=== PATIENT | female | born 1975 | race Caucasian/White ===

== ENCOUNTER 2020-09-09 14:52 | Emergency (ER) | payer OTHER ==
[~2020-09-09] VITALS: Ht 175.2 cm; Wt 125.0 kg
[2020-09-09 16:00] LABS: BASOPHILS # (AUTO) 0.1 10^3/uL (0.0-0.1); BASOPHILS % (AUTO) 1 % (0-10); EOSINOPHILS # (AUTO) 0.1 10^3/uL (0.0-0.3); EOSINOPHILS % (AUTO) 1 % (0-10); HEMATOCRIT 40 % (35-52); HEMOGLOBIN 12.2 g/dL (11.5-16.0); LYMPHOCYTES # (AUTO) 2.2 10^3/uL (1.0-4.0); LYMPHOCYTES % (AUTO) 15 % (12-44); MEAN CORPUSCULAR HEMOGLOBIN 26 pg (25-34); MEAN CORPUSCULAR HGB CONC 30 g/dL (32-36); MEAN CORPUSCULAR VOLUME 86 fL (80-99); MEAN PLATELET VOLUME 8.6 fL (9.0-12.2); MONOCYTES # (AUTO) 0.9 10^3/uL (0.0-1.0); MONOCYTES % (AUTO) 6 % (0-12); NEUTROPHILS # (AUTO) 11.4 10^3/uL (1.8-7.8); NEUTROPHILS % (AUTO) 75 % (42-75); PLATELET COUNT 583 10^3/uL (130-400); WHITE BLOOD COUNT 15.2 10^3/uL (4.3-11.0)
--- NOTE | 2020-09-09 16:09 | ED Respiratory ---
General Chief Complaint: General Problems/Pain Stated Complaint: COVID SYMPTOMS Nursing Triage Note: Pt ambulatory to ER after being seen at [facility] for SOA with Exertion, Fatigue x2 weeks. Pt was diagnosed Covid+ on 08/27/20. Pt states that she was called sunday and told she no longer needed to quarentine. Pt states that she is still having these symptoms. Pt denies vaccination. Source: patient Exam Limitations: no limitations History of Present Illness Date Seen by Provider: Sep 09, 2020 Time Seen by Provider: 15:20 Initial Comments Patient to the ER by private conveyance from home with chief complaint that she was diagnosed on 27 August with COVID-19. 3 days later she felt very short of br eath so she went to [facility] and they put her on regen monoclonal antibodies and sent her home. She says she felt much better afterwards and has not had any fever since the . She still feels very tired and short of air especially with exertion [place] appointment with Dr. Jonas at [facility]. She typically sees [facility]. He told her that her oxygen sat went down to 83% when she walked around so she needed to come out to the ER to be ruled out for a pulmonary embolism. Patient does not have a history of lung disease she does not smoke and she does not use oxygen at baseline. Nursing reports that after ambulating all the way from the parking lot into the ER and in 2 days she was put on pulse oximeter and had an oxygen saturation of 100% with nonlabored breathing. Allergies and Home Medications Allergies Coded Allergies: No Known Drug Allergies (Unverified , 09/09/20) Patient Home Medication List Home Medication List Reviewed: Yes Review of Systems Review of Systems Constitutional: No chills, No fever; malaise, weakness EENTM: No hearing loss, No ear pain, No eye pain Respiratory: No cough, No phlegm; short of breath Cardiovascular: No chest pain, No edema, No palpitations Gastrointestinal: No abdominal pain, No constipation, No diarrhea, No nausea Musculoskeletal: No back pain, No joint pain All Other Systems Reviewed Negative Unless Noted: Yes Past Vvolgbg-[id number]-[id number] Hx Patient Social History Tobacco Use?: No Use of E-Cig and/or Vaping dev: No Substance use?: No Alcohol Use?: No Pt feels they are or have been: No Immunizations Up To Date Influenza Vaccine Up-to-Date: No; Not Current Physical Exam Vital Signs - First Documented 09/09/20 15:15 Temp 37.6 Pulse 110 Resp 24 B/P (MAP) 131/90 (104) Pulse Ox 98 O2 Delivery Room Air Capillary Refill : Less Than 3 Seconds Height: '" Weight: lbs. oz. kg; 40.00 BMI Method: General Appearance: no apparent distress, obese Eyes: Bilateral Eye Normal Inspection, Bilateral Eye PERRL, Bilateral Eye EOMI HEENT: PERRL/EOMI, pharynx normal (Oral mucosa is only mildly dry) Neck: non-tender, normal inspection Respiratory: lungs clear, normal breath sounds, no respiratory distress (Oxygen saturation 100% with nonlabored breathing on room air and a good pulsatile waveform.), no accessory muscle use Cardiovascular: normal peripheral pulses, regular rate, rhythm, no edema Gastrointestinal: normal bowel sounds, non tender, soft Extremities: non-tender, normal inspection Neurologic/Psychiatric: no motor/sensory deficits, alert, normal mood/affect, oriented x 3 Skin: normal color, warm/dry Progress/Results/Core Measures Suspected Sepsis SIRS Temperature: Pulse: 110 Respiratory Rate: 24 Laboratory Tests 09/09/20 15:46: White Blood Count 15.2H Blood Pressure 131 /90 Mean: 104 Laboratory Tests 09/09/20 15:46: Creatinine 0.76, Platelet Count 583H, Total Bilirubin 0.2 Results/Orders Lab Results Laboratory Tests Test 09/09/20 15:46 09/09/20 15:52 Range/Units White Blood Count 15.2 H 4.3-11.0 10^3/uL Red Blood Count 4.68 3.80-5.11 10^6/uL Hemoglobin 12.2 11.5-16.0 g/dL Hematocrit 40 35-52 % Mean Corpuscular Volume 86 80-99 fL Mean Corpuscular Hemoglobin 26 25-34 pg Mean Corpuscular Hemoglobin Concent 30 L 32-36 g/dL Red Cell Distribution Width 15.2 H 10.0-14.5 % Platelet Count 583 H 130-400 10^3/uL Mean Platelet Volume 8.6 L 9.0-12.2 fL Immature Granulocyte % (Auto) 4 % Neutrophils (%) (Auto) 75 42-75 % Lymphocytes (%) (Auto) 15 12-44 % Monocytes (%) (Auto) 6 0-12 % Eosinophils (%) (Auto) 1 0-10 % Basophils (%) (Auto) 1 0-10 % Neutrophils # (Auto) 11.4 H 1.8-7.8 10^3/uL Lymphocytes # (Auto) 2.2 1.0-4.0 10^3/uL Monocytes # (Auto) 0.9 0.0-1.0 10^3/uL Eosinophils # (Auto) 0.1 0.0-0.3 10^3/uL Basophils # (Auto) 0.1 0.0-0.1 10^3/uL Immature Granulocyte # (Auto) 0.5 H 0.0-0.1 10^3/uL Neutrophils % (Manual) 71 % Lymphocytes % (Manual) 22 % Monocytes % (Manual) 7 % Blood Morphology Comment NORMAL D-Dimer > 20.00 H 0.00-0.49 UG/ML Sodium Level 142 135-145 MMOL/L Potassium Level 4.6 3.6-5.0 MMOL/L Chloride Level 105 98-107 MMOL/L Carbon Dioxide Level 25 21-32 MMOL/L Anion Gap 12 5-14 MMOL/L Blood Urea Nitrogen 11 7-18 MG/DL Creatinine 0.76 0.60-1.30 MG/DL Estimat Glomerular Filtration Rate 83 BUN/Creatinine Ratio 14 Glucose Level 97 70-105 MG/DL Calcium Level 9.1 8.5-10.1 MG/DL Corrected Calcium 9.3 8.5-10.1 MG/DL Total Bilirubin 0.2 0.1-1.0 MG/DL Aspartate Amino Transf (AST/SGOT) 35 H 5-34 U/L Alanine Aminotransferase (ALT/SGPT) 42 0-55 U/L Alkaline Phosphatase 59 40-136 U/L C-Reactive Protein High Sensitivity 0.47 0.00-0.50 MG/DL Total Protein 7.3 6.4-8.2 GM/DL Albumin 3.8 3.2-4.5 GM/DL Blood Gas Puncture Site RIGHT RADIAL Blood Gas Patient Temperature 99.6 Arterial Blood pH 7.40 7.37-7.43 Arterial Blood Partial Pressure CO2 37 35-45 MMHG Arterial Blood Partial Pressure O2 95 H 79-93 MMHG Arterial Blood HCO3 22 L 23-27 MMOL/L Arterial Blood Total CO2 23.4 21.0-31.0 MMOL/L Arterial Blood Oxygen Saturation 97 94-100 % Arterial Blood Base Excess -1.8 -2.5-2.5 MMOL/L Kermit Test POSITIVE Blood Gas Ventilator Setting NO Blood Gas Inspired Oxygen N/A My Orders Orders - ABRAHAM JIMENEZ Ed Iv/Invasive Line Start (09/09/20 16:03) Ns Iv 1000 Ml (Sodium Chloride 0.9%) (09/09/20 16:15) Arterial Blood Gas (09/09/20 16:09) Ct Angio Chest W (09/09/20 17:19) Iohexol Injection (Omnipaque 350 Mg/Ml 1 (09/09/20 18:00) Received Contrast (Hold Metformin- Contr (09/09/20 18:00) Sodium Chloride Flush (Catheter Flush Sy (09/09/20 18:00) Ns (Ivpb) (Sodium Chloride 0.9% Ivpb Bag (09/09/20 18:00) Medications Given in ED Current Medications Medications Dose Ordered Sig/Brooks Route Start Time Stop Time Status Last Admin Dose Admin Iohexol 100 ml ONCE ONCE IV 09/09/20 18:00 09/09/20 18:01 DC 09/09/20 18:15 87 ML Sodium Chloride 10 ml NEEDED PRN IV 09/09/20 18:00 09/09/20 18:15 10 ML Sodium Chloride 100 ml ONCE ONCE IV 09/09/20 18:00 09/09/20 18:01 DC 09/09/20 18:15 80 ML Vital Signs/I&O 09/09/20 15:15 Temp 37.6 Pulse 110 Resp 24 B/P (MAP) 131/90 (104) Pulse Ox 98 O2 Delivery Room Air Capillary Refill : Less Than 3 Seconds Blood Pressure Mean: 104 Progress Note : Time: 16:07 Progress Note We did explain to the patient that she has all symptoms of a post Covid syndrome and gave counseling as to what to expect. Patient is still very concerned about her recommendation she might have a pulmonary embolism so a D-dimer and some labs as well as a chest x-ray were ordered. If the D-dimer is unable to rule out a pulmonary embolism then we will get a CT angiogram. We will give her a liter of fluids in anticipation of an angiogram as well as for her mild dehydration. She has no overt evidence of respiratory failure at this time. ABG was obtained. She does have a mild tachycardia of 109. Her white count is marginal and without a left shift. Diagnostic Imaging Diagonstic Imaging: Xray Plain Films/CT/US/NM/MRI: chest Comments [facility], [place] NAME: [facility] REC#: [id number] PT STATUS: REG ER : 1975 PHYSICIAN: SHABNAM DICKSON APRN ADMIT DATE: 09/09/20/ER Draft Date of Exam:09/09/20 CHEST 1 VIEW, AP/PA ONLY INDICATION: COVID infection with dyspnea and fatigue. Single AP view of chest is obtained. COMPARISON: No previous study is available for comparison at this time. FINDINGS: Heart size and pulmonary vasculature are within normal limits, and the lungs are clear, bilaterally. IMPRESSION: Unremarkable chest. Dictated on workstation # [id number] Dict: 09/09/20 1625 Trans: 09/09/20 1626 [id number] Interpreted by: AIRAM RAIN MD Electronically signed by: Reviewed: Reviewed by Me Diagonstic Imaging: CT Plain Films/CT/US/NM/MRI: chest Comments [facility] [place] [facility] REC[facility] [id number] PT STATUS: REG ER : 1975 PHYSICIAN: ABRAHAM JIMENEZ MD ADMIT DATE: 09/09/20/ER Signed Date of Exam:09/09/20 CT ANGIO CHEST W PROCEDURE: CT angiography of the chest with contrast. TECHNIQUE: Multiple contiguous axial images were obtained through the chest after uneventful bolus administration of intravenous contrast. 3D reconstructed CTA MIP acquisitions were also performed. Auto Exposure Controls were utilized during the CT exam to meet ALARA standards for radiation dose reduction. INDICATION: Hypoxemia. Shortness of breath. COVID positive. COMPARISON: Chest radiograph performed earlier the same day. FINDINGS: This helical CT pulmonary angiogram is diagnostic to the subsegmental level branches of the pulmonary artery and demonstrates no pulmonary emboli. The heart and great vessels are unremarkable. There is no pericardial effusion. There is no axillary, mediastinal or hilar adenopathy. Nodular opacities are seen throughout the lungs. No focal consolidation. No central endobronchial obstructing lesion. No pleural effusion or pneumothorax. Osseous structures appear normal. Limited views of the upper abdomen are unremarkable. IMPRESSION: 1. No acute pulmonary embolus. 2. Scattered nodular opacities throughout all five lobes. Findings can represent COVID infection. However, malignancy can also have this appearance and follow-up is recommended to ensure resolution. Dictated by: Dictated on workstation # [id number] Dict: 09/09/201816 Trans: 09/09/201830 PJE [id number] Interpreted by: ANA ROSA BILL DO Electronically signed by: ANA ROSA BILL DO 09/09/201830 Reviewed: Reviewed by Me Departure Impression Primary Impression: Post-acute COVID-19 syndrome Disposition: 01 HOME, SELF-CARE Condition: Stable Departure-Patient Inst. Decision time for Depature: 18:37 Patient Instructions: Recovery After COVID-19 Add. Discharge Instructions: It is not unusual to have shortness of breath weakness and malaise for weeks or even sometimes months after an acute Covid episode. Please review the handout for further instructions on what to expect. Follow-up with your primary care doctor for any other specific concerns. Return to the ER if you have persistent oxygen saturations below 90% while at rest, chest pain or other worrisome symptoms. All discharge instructions reviewed with patient and/or family. Voiced understanding. ABRAHAM JIMENEZ Sep 09, 2020 16:09
[2020-09-09 16:10] LABS: ALBUMIN 3.8 GM/DL (3.2-4.5); POTASSIUM 4.6 MMOL/L (3.6-5.0)
[2020-09-09 16:11] LABS: ABG BASE EXCESS -1.8 MMOL/L (-2.5-2.5); ABG OXYGEN SATURATION 97 % (94-100); ABG PCO2 37 MMHG (35-45); ABG PO2 95 MMHG (79-93); ABG TCO2 23.4 MMOL/L (21.0-31.0)
[2020-09-09 16:12] LABS: ALLENS TEST POSITIVE; PATIENT TEMP 99.6; VENTILATOR NO
[2020-09-09 16:12] LABS: CALCIUM 9.1 MG/DL (8.5-10.1)
[2020-09-09 16:13] LABS: TOTAL PROTEIN 7.3 GM/DL (6.4-8.2)
[2020-09-09 16:15] LABS: BILIRUBIN,TOTAL 0.2 MG/DL (0.1-1.0)
[2020-09-09] MEDS ORDERED: NS IV 1000 ML 1,000 ML IV SCH (16:15)
[2020-09-09 16:17] LABS: CREATININE SERUM 0.76 MG/DL (0.60-1.30)
--- NOTE | 2020-09-09 16:26 | Diagnostic Imaging Report ---
INDICATION: COVID infection with dyspnea and fatigue. Single AP view of chest is obtained. COMPARISON: No previous study is available for comparison at this time. FINDINGS: Heart size and pulmonary vasculature are within normal limits, and the lungs are clear, bilaterally. IMPRESSION: Unremarkable chest. Dictated by: Dictated on workstation # [id number]
[2020-09-09 16:51] LABS: LYMPHOCYTES % (MANUAL) 22 %; MONOCYTES % (MANUAL) 7 %; NEUTROPHILS % (MANUAL) 71 %; RBC MORPH NORMAL
[2020-09-09] MEDS ORDERED: CATHETER FLUSH 10 ML SYR IV PRN (18:00)
[2020-09-09] MEDS ORDERED: HOLD METFORMIN - RECEIVED CONTRAST 20 ML VIAL IV SCH (18:00)
[2020-09-09] MEDS ORDERED: NS 100 ML (IVPB) BAG IV ONE (18:00)
[2020-09-09] MEDS ORDERED: IOHEXOL 350 MG/ML 100 ML (OMNIPAQUE 350) VIAL IV ONE (18:00)
--- NOTE | 2020-09-09 18:25 | Diagnostic Imaging Report ---
PROCEDURE: CT angiography of the chest with contrast. TECHNIQUE: Multiple contiguous axial images were obtained through the chest after uneventful bolus administration of intravenous contrast. 3D reconstructed CTA MIP acquisitions were also performed. Auto Exposure Controls were utilized during the CT exam to meet ALARA standards for radiation dose reduction. INDICATION: Hypoxemia. Shortness of breath. COVID positive. COMPARISON: Chest radiograph performed earlier the same day. FINDINGS: This helical CT pulmonary angiogram is diagnostic to the subsegmental level branches of the pulmonary artery and demonstrates no pulmonary emboli. The heart and great vessels are unremarkable. There is no pericardial effusion. There is no axillary, mediastinal or hilar adenopathy. Nodular opacities are seen throughout the lungs. No focal consolidation. No central endobronchial obstructing lesion. No pleural effusion or pneumothorax. Osseous structures appear normal. Limited views of the upper abdomen are unremarkable. IMPRESSION: 1. No acute pulmonary embolus. 2. Scattered nodular opacities throughout all five lobes. Findings can represent COVID infection. However, malignancy can also have this appearance and follow-up is recommended to ensure resolution. Dictated by: Dictated on workstation # [id number]
[2020-09-09 18:40] VITALS: BP 112/83
--- OUTSIDE RECORDS SUMMARY | 2020-09-12 06:13 | XMS REPORT ---
Author Author [facility] Address Unknown Phone Unavailable Care Team Providers Care Die Maker Electronic Name Role Phone Migration, Doctor Unavailable Unavailable PROBLEMS Type Condition ICD9-CM Code [id number] Code Onset Dates Condition S tatus W/U Status Risk SNOMED Code Notes Problem Peripheral polyneuropathy G62.9 Active confirmed 42560653 Problem Peripheral polyneuropathy G62.9 Active confirmed 41143996 Problem Chronic migraine G43.709 Active confirmed 42 9115841 Problem Gastroesophageal reflux disease without esophagitis K21.9 Active confirmed 064241396 Problem Other chronic pain G89.29 Active confirmed 8 9788236 Problem Hypercholesteremia E78.00 Active confirmed 1 5139983 Problem Obesity (BMI 35.0-39.9 without comorbidity) E66.9 Active confirmed 115851652 Problem Right carpal tunnel syndrome G56.01 Active con firmed 856142456139234 Problem Lumbago with sciatica, right side M54.41 Active confirmed 177133585193160 Problem Ulcer of other part of foot L97.509 Active confirme d 30041583 L hallux Problem Lumbago with sciatica, left side M54.42 Active confirmed 986069681 Problem Episode of recurrent major d epressive disorder, unspecified depression episode severity F33.9 Active confirmed 272655510 Problem Hypothyroidism, unspecified type E03.9 Active conf irmed 07535973 Problem Hypothyroidism, unspecified type E03.9 Active conf irmed 67207094 Problem Skin ulcer of toe of left foot, limited to breakdown o f skin L97.521 Active confirmed 108225671 ALLERGIES Allergen (clinical drug ingredient) Drug/Non Drug Allergy do cumented on EMR Reaction Allergy Type Onset Date Status Compazine Unknown Drug Allergy Active fluoxetine Prozac([facility] Code:[address]-77) whole ssri family Drug Rui rgy Active penicillin V Penicillin V Potassium([facility] Code:[address]-58) U nknown Drug Allergy Active ENCOUNTERS from 1975 to 2020-07-15 Encounter Location Date Provider Diagnosis [facility] [address] [facility] [id number] [place] [address] Aug, Doctor Migration IMMUNIZATIONS No Information SOCIAL HISTORY Sex Assigned At : Social History Observation Description Sex Assigned At Unknown Alcohol Screen (Audit-C) Question Answer Notes Did you have a drink containing alcohol in the past year? No Points 0 Interpretation Negative PHQ2 Question Answer Notes In the last 2 weeks, how often have you had little interest or pleasure in doing things? Not at all In the last 2 weeks, how often have you been feeling down, depressed, or hopeless? Nearly every day Total PHQ2 Score 3 REASON FOR REFERRAL No Information VITAL SIGNS No information MEDICATIONS Medication SIG (Take, Route, Frequency, Duration) Notes Start Da te End Date Status Levothyroxine Sodium 100 MCG TAKE 1 TABLET BY MOUTH EV VICKI DAY Orally Once a day for 30 day(s) Active Atorvastatin Calcium 10 MG 1 tablet Orally Once a day for 90 Active Topamax 200 MG 1 tablet Orally Once a day Sep, Active Nortriptyline HCl 25 MG 1 capsule Orally Once a day PT state s this is 6 capsules a day now Active Gabapentin 600 mg 1 tablet Orally 3 times a day for 30 day (s) pt states that this is 4 times a day per DR. santana. Sep, A ctive Methocarbamol 500 MG 1 tablet Orally every 4 hrs for 15 Active Celecoxib 200 MG 1 capsule with food Orally Once a day for 30 day(s) Active SUMAtriptan Succinate 100 MG 1 tablet as needed Orally at onset of migraine may repeate in 2 hours as needed no more than 2 tablets in 24 hours. PRN Active PROCEDURES No Information RESULTS No Results REASON FOR VISIT EMR-[facility] [place] MEDICAL (GENERAL) HISTORY Type Description Date Medical History deginerative disc and joint disease Medical History scoliosis Medical History arthritis Medical History neuropathy Medical History thyroid problems Medical History chronic migraines Medical History short term memory loss Medical History depression Medical History acid reflux Medical History b 12 defficiancy Medical History high cholesterol Surgical History gastric sleeve Surgical History gastric bypass Surgical History gall bladder removal Surgical History T & A Surgical History Surgical History left leg and foot reconstruction Surgical History plate in jaw Surgical History all teeth removed and dentures placed Hospitalization History surgeries Hospitalization History foot leg and jaw 2 week stay Hospitalization History Hospitalization History depression Goals Section No Information Health Concerns No Information MEDICAL EQUIPMENT No Information MENTAL STATUS No Information FUNCTIONAL STATUS No Information ASSESSMENTS No Information PLAN OF TREATMENT Medication Medication Name Sig Start Date Stop Date Atorvastatin Calcium 10 MG 1 tablet Orally Once a day for 90 Methocarbamol 500 MG 1 tablet Orally every 4 hrs for 15 Next Appt Details Provider Name:ANTONIO YU, 2020-08-27 09:00:00 AM, [address] [facility], [id number], [place], [address], Provider Name:BIMAL BEAUCHAMP, 8 11:00:00 AM, [address] [facility], [id number], [place], [address], Insurance Providers Payer Name Payer Address Payer Phone Insured Name Patient Relati onship to Insured Coverage Start Date Coverage End Date ALONDRA [employer] [facility] [address] [address] [facility] [phone] Deb Oliveira
--- OUTSIDE RECORDS SUMMARY | 2020-09-12 06:13 | XMS REPORT | Clinical Summary ---
Author Author [facility] Organization [facility] Address Unknown Phone Unavailable Care Team Providers Care Underwear Trimmer Name Role Phone Cordell Blanco MD Unavailable Gilles Penny DO PCP Source Comments Some departments are not documenting in the electronic medical record. If you d o not see the information that you expected, contact Release of Information in [facility] Information Management department at [phone] for further assistan ce in locating additional records.[facility] Allergies Comments Active Allergy Reactions Severity Noted Date Prochlorperazine SEIZURES High 10/16/2014 Paroxetine Hcl UNKNOWN Low 10/16/2014 Penicillins UNKNOWN Low 10/16/2014 Vilazodone ANAPHYLAXIS High 10/16/2014 Medications End Date Status Medication Sig Dispensed Refills Start Date Active metFORMIN (GLUCOPHAGE) Take 1,000 mg 0 1,000 mg tablet by mouth twice daily with meals. Active HYDROcodone-acetaminophen Take 0.5-1 0 (+) (LORTAB, NORCO) Tabs by mouth 10-325 mg tablet every 4 hours as needed for Pain Active levothyroxine (SYNTHROID) Take 125 mcg 0 100 mcg tablet by mouth daily. Active etodolac (LODINE) 200 mg Take 200 mg 0 capsule by mouth twice daily. Active lidocaine(+) 5 % oint Apply to 0 topical ointment affected area as Needed. Active atomoxetine (STRATTERA) Take 40 mg by 0 40 mg capsule mouth at bedtime daily. Active gabapentin (NEURONTIN) Take 600-900 0 600 mg tablet mg by mouth five times daily. Active sumatriptan (IMITREX) 100 Take 100 mg 0 mg tablet by mouth as Needed for Migraine symptoms. Active albuterol 0.5% Inhale 2.5 mg 0 (PROVENTIL; VENTOLIN) 2.5 solution as mg/0.5 mL nebu nebulizer directed solution every 4 hours as needed. Active albuterol (VENTOLIN HFA, Inhale 2 0 PROAIR HFA) 90 Puffs by mcg/actuation inhaler mouth every 4 hours as needed for Wheezing. Active nortriptyline (PAMELOR) Take 25 mg by 0 25 mg capsule mouth at bedtime daily. Active topiramate (TOPAMAX) 200 Take 200 mg 0 mg tablet by mouth daily. Active ergocalciferol (VITAMIN Take 1 Cap by 12 Cap 0 D-2) 50,000 unit capsule mouth every 7 5 days. Active cholecalciferol (VITAMIN Take 2 Tabs 90 Tab 3 1 D-3) 1,000 units tablet by mouth 5 daily. Active methocarbamol (ROBAXIN) Take 1,000 mg 0 500 mg tablet by mouth four times daily. Active omeprazole DR(+) Take 20 mg by 0 (PRILOSEC) 20 mg capsule mouth daily before breakfast. Active celecoxib (CELEBREX) 200 Take 200 mg 0 mg capsule by mouth daily. Active cyanocobalamin (VITAMIN Inject 1 mL 0 B-12, RUBRAMIN) 1,000 into the mcg/mL injection muscle every 30 days. Active lisdexamfetamine Take 70 mg by 0 (VYVANSE) 70 mg capsule mouth every morning Active Problems No known active problems Immunizations Name Administration Dates Next Due Flu Vaccine 6-35 MO 12/06/2010 (Historical) Surgical History Surgery Date Site/Laterality Comments SECTION FOOT SURGERY left SURGERY jaw metal plate, and left l eg mitchell metal plate TONSIL AND ADENOIDECTOMY Medical History Medical History Date Comments Arthritis Degenerative joint disease Hyperinsulinemia Chronic pain Neuropathy Chronic migraine with seizure Family History Medical History Relation Name Comments Psoriasis Daughter Arthritis Father Diabetes Father Heart Disease Father Arthritis Mother SLE Mother Ankylosing Spondylitis Neg Hx Cancer Neg Hx Epilepsy Neg Hx Gout Neg Hx Irritable Bowel Disease Neg Hx Kidney Disease Neg Hx Osteoporosis Neg Hx Scleroderma Neg Hx Stroke Neg Hx Relation Name Status Comments Daughter Father Mother Social History Date Tobacco Use Types Packs/Day Years Used Never Smoker Smokeless Tobacco: Never Used Drinks/Week oz/Week Comments Alcohol Use 0 Standard drinks or equivalent 0.0 No Sex Assigned at Date Recorded Not on file Last Filed Vital Signs Reading Time Taken Comments Vital Sign 124/86 03/06/2017 2:29 PM [employer]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 Blood Pressure 87 03/06/2017 2:29 PM [employer]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 Pulse 36.8 C (98.3 F) 01/11/2017 2:06 PM PER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 Temperature 20 10/23/2014 9:46 AM CDT Respiratory Rate 100% 03/06/2017 2:29 PM PER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 Oxygen Saturation - - Inhaled Oxygen Concentration 127 kg (280 lb) 03/06/2017 2:29 PM PER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 Weight 175.3 cm (5' 9.02") 03/06/2017 2:29 PM PER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 Height 41.33 03/06/2017 2:29 PM PER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 Body Mass Index Plan of Treatment Health Maintenance Due Date Last Done Comments HIV SCREENING 1991 DTAP/TDAP VACCINES ( - 1994 Tdap) PHYSICAL (COMPREHENSIVE) 1994 EXAM CERVICAL CANCER SCREENING 1997 BREAST CANCER SCREENING 2016 INFLUENZA VACCINE 11/05/2020 12/06/2010 HEPATITIS C SCREENING Completed 10/23/2014 Results Not on filefrom Last 3 Months Insurance Type Payer Benefit Subscriber ID Effective Phone Address Plan / Dates Group AETNA MEDICAID AETNA [id number] 2020- BETTER Present [facility]ALTH [place] Advance Directives 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
--- OUTSIDE RECORDS SUMMARY | 2020-09-12 06:13 | XMS REPORT ---
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 Mechanic Name Role Phone Migration, Doctor Unavailable Unavailable PROBLEMS Type Condition ICD9-CM Code [id number] Code Onset Dates Condition S tatus W/U Status Risk SNOMED Code Notes Problem Peripheral polyneuropathy G62.9 Active confirmed 30442208 Problem Peripheral polyneuropathy G62.9 Active confirmed 99957548 Problem Chronic migraine G43.709 Active confirmed 42 2846633 Problem Gastroesophageal reflux disease without esophagitis K21.9 Active confirmed 268606166 Problem Other chronic pain G89.29 Active confirmed 8 3228454 Problem Hypercholesteremia E78.00 Active confirmed 1 1438827 Problem Obesity (BMI 35.0-39.9 without comorbidity) E66.9 Active confirmed 574320063 Problem Right carpal tunnel syndrome G56.01 Active con firmed 725837556454050 Problem Lumbago with sciatica, right side M54.41 Active confirmed [id number] Problem Ulcer of other part of foot L97.509 Active confirme d 81214918 L hallux Problem Lumbago with sciatica, left side M54.42 Active confirmed 225111624 Problem Episode of recurrent major d epressive disorder, unspecified depression episode severity F33.9 Active confirmed 143619843 Problem Hypothyroidism, unspecified type E03.9 Active conf irmed 02554377 Problem Hypothyroidism, unspecified type E03.9 Active conf irmed 93321277 Problem Skin ulcer of toe of left foot, limited to breakdown o f skin L97.521 Active confirmed 861328339 ALLERGIES Allergen (clinical drug ingredient) Drug/Non Drug Allergy do cumented on EMR Reaction Allergy Type Onset Date Status Compazine Unknown Drug Allergy Active fluoxetine Prozac([facility] Code:[address]-64) whole ssri family Drug Rui rgy Active penicillin V Penicillin V Potassium([facility] Code:[address]-37) U nknown Drug Allergy Active ENCOUNTERS from 1975 to 2020-08-09 Encounter Location Date Provider Diagnosis [facility] [id number] [place] [address] May, Doctor Migration IMMUNIZATIONS No Information SOCIAL HISTORY [...] Information RESULTS No Results REASON FOR VISIT EMR-[facility] [place] MEDICAL (GENERAL) HISTORY Type [...] Name:ANTONIO YU, 2020-08-27 09:00:00 AM, [address], [id number], [place], [address], Provider Name:BIMAL BEAUCHAMP, 8 11:00:00 AM, [address], [id number], [place], [address], Insurance Providers Payer Name Payer Address Payer Phone Insured Name Patient Relati onship to Insured Coverage Start Date Coverage End Date ALONDRA [employer] [facility] [address] [address] [facility] [address] Deb Oliveira
--- OUTSIDE RECORDS SUMMARY | 2020-09-12 06:13 | XMS REPORT ---
Author Author [facility] Address Unknown Phone Unavailable Care Team Providers Care Topper Press Operator Name Role Phone Migration, Doctor Unavailable Unavailable PROBLEMS Type Condition ICD9-CM Code [id number] Code Onset Dates Condition S tatus W/U Status Risk SNOMED Code Notes Problem Peripheral polyneuropathy G62.9 Active confirmed 30406765 Problem Peripheral polyneuropathy G62.9 Active confirmed 19752806 Problem Chronic migraine G43.709 Active confirmed 42 4641057 Problem Gastroesophageal reflux disease without esophagitis K21.9 Active confirmed 353552053 Problem Other chronic pain G89.29 Active confirmed 8 2421395 Problem Hypercholesteremia E78.00 Active confirmed 1 5895882 Problem Obesity (BMI 35.0-39.9 without comorbidity) E66.9 Active confirmed 193658252 Problem Right carpal tunnel syndrome G56.01 Active con firmed 545212366904967 Problem Lumbago with sciatica, right side M54.41 Active confirmed 605673633312688 Problem Ulcer of other part of foot L97.509 Active confirme d 47361936 L hallux Problem Lumbago with sciatica, left side M54.42 Active confirmed 496090384 Problem Episode of recurrent major d epressive disorder, unspecified depression episode severity F33.9 Active confirmed 270515318 Problem Hypothyroidism, unspecified type E03.9 Active conf irmed 47310019 Problem Hypothyroidism, unspecified type E03.9 Active conf irmed 69386963 Problem Skin ulcer of toe of left foot, limited to breakdown o f skin L97.521 Active confirmed 249253785 ALLERGIES Allergen (clinical drug ingredient) Drug/Non Drug Allergy do cumented on EMR Reaction Allergy Type Onset Date Status Compazine Unknown Drug Allergy Active fluoxetine Prozac([facility] Code:[address]-69) whole ssri family Drug Rui rgy Active penicillin V Penicillin V Potassium([facility] Code:[address]-87) U nknown Drug Allergy Active ENCOUNTERS from 1976 to 2020-08-19 Encounter Location Date Provider Diagnosis [facility] [address] [facility] [id number] [place] [address] June, Doctor Migration IMMUNIZATIONS No Information SOCIAL HISTORY [...] Information RESULTS No Results REASON FOR VISIT EMR-[facility] MEDICAL (GENERAL) HISTORY Type Description Date Medical [...] Name:ANTONIO YU, 2020-08-27 09:00:00 AM, [address] [facility], [id number], [place], [address], Provider Name:BIMAL BEAUCHAMP, 8 11:00:00 AM, [address] [facility], [id number], [place], [address], Insurance Providers Payer Name Payer Address Payer Phone Insured Name Patient Relati onship to Insured Coverage Start Date Coverage End Date ALONDRA [employer] [facility] [address] [address] [facility] [phone] Deb Oliveira
== END 2020-09-09 18:40 | disposition home or self-care (01) ==
LOC: ER 14:57
DX: R06.02 Shortness of breath (principal); E66.9 Obesity, unspecified; Z86.16 Personal history of COVID-19; Z68.41 Body mass index [BMI] 40.0-44.9, adult
CPT/HCPCS: 36415; 71045; 71275; 80053; 82805; 85007; 85027; 85379; 86141

== ENCOUNTER → 2021-05-24 | Outpatient (CLI) | payer MEDICAID ==
[~2021-05-24] MED LIST: RT-ALBUTEROL SULF 2.5 MG/3 ML PRE-MIX VIAL INH ONE
== END ==
LOC: RT 15:45
PROVIDERS: ATTEND Nurse Practitioner Family
DX: R06.02 Shortness of breath (principal)
CPT/HCPCS: 94060; 94726; 94729